=== PATIENT | female | born 1995 | race Caucasian/White ===

== ENCOUNTER 2016-07-26 21:46 | Emergency (ER) | payer OTHER ==
--- NOTE | 2016-07-26 22:07 | EDPHY ---
H & P Stated Complaint: possible tampon in vagina since Wednesday - Personal History LMP (Females 10-55): 1-7 Days Ago Current Tetanus/Diphtheria Vaccine: Yes Current Tetanus Diphtheria and Acellular Pertussis (TDAP): Yes Tetanus Vaccine Date: 2012 - Medical/Surgical History Hx Asthma: No Hx Chronic Respiratory Disease: No Hx Diabetes: No Hx Cardiac Disease: No Hx Renal Disease: No Hx Cirrhosis: No Hx Alcoholism: No Hx HIV/AIDS: No Hx Splenectomy or Spleen Trauma: No Other PMH: asthma. no PSH - Social History Smoking Status: Never smoked Time Seen by Provider: 07/26/16 21:56 HPI/ROS: Chief complaint: Possible retained tampon History of present illness: This is a 20-year-old female who presents to the emergency department concerned she has a possible retained tampon. Patient remembers placing a tampon yesterday. However she does not remember removing it. She cannot find it. She has no other complaints. (Zay Dobbs) - Physical Exam Exam: General: Alert, nontoxic Pelvic Exam: The vulva was normal no lesions. The vagina did not have significant discharge. The cervix was closed no bleeding and no purulent drainage. The uterus was normal size and non tender. The adnexa had no masses and no tenderness. No tampon was noted. The exam was performed with a finger waver. (Zay Dobbs) Constitutional: Initial Vital Signs Temperature (C) 36.7 C 07/26/16 21:49 Heart Rate 104 H 07/26/16 21:49 Respiratory Rate 18 07/26/16 21:49 Blood Pressure 151/96 H 07/26/16 21:49 O2 Sat (%) 95 07/26/16 21:49 O2 Delivery Mode Room Air Allergies/Adverse Reactions: No Known Allergies Allergy (Unverified 07/26/16 21:49) Home Medications: Medication Instructions Recorded NK [No Known Home Meds] 07/26/16 Medical Decision Making ED Course/Re-evaluation: The patient was evaluated and managed by the physician's custody assistant. My cosignature indicates that I reviewed the chart and I agree with the findings and plan of care as documented. I am the secondary supervising physician. ( Jackie Reed) Patient seen under the supervision of my secondary supervising physician Dr. Jackie Reed. Patient presents concerned she has retained tampon. She is nontoxic. Pelvic exam was performed with finger waver and no tampon is identified. She has no other complaints. She is discharged home and asked to follow up with a primary care doctor for recheck. Return precautions are given. (Zay Dobbs) Departure - Departure Disposition: Home, Routine, Self-Care Clinical Impression: Retained tampon Qualifiers: Encounter type: initial encounter Qualified Code(s): T19.2XXA - Foreign body in vulva and vagina, initial encounter Condition: Good Instructions: Vaginal Foreign Body (ED) Additional Instructions: Follow-up with student health or a primary care doctor for recheck If symptoms worsen or new symptoms develop return to the emergency room for recheck Referrals: [facility] [Clinic] - As per Instructions Harpal Linares MD [Medical Doctor] - As per Instructions
[2016-07-26 22:19] VITALS: BP 133/85; PULSE 90; RESP 20; TEMP 98.6; O2SAT 96
== END 2016-07-26 22:20 | disposition home or self-care (01) ==
DX: T19.2XXA Foreign body in vulva and vagina, initial encounter (principal); X58.XXXA Exposure to other specified factors, initial encounter